=== PATIENT | male | born 1990 | race Hispanic/Latino ===

== ENCOUNTER 2020-02-25 11:00 | Emergency (ER) | payer OTHER, SELFPAY ==
[2020-02-25 11:09] VITALS: BP 154/72; PULSE 66; RESP 16; TEMP 36.4; O2SAT 100
--- NOTE | 2020-02-25 11:39 | ED.GENADULT ---
HPI - General Adult General Chief complaint: Head Injury Stated complaint: head injury Time Seen by Provider: 02/25/20 11:12 Source: patient and family Mode of arrival: ambulatory Limitations: no limitations History of Present Illness HPI narrative: Patient is a 29-year-old male who walked into a piece of metal today causing a laceration of the scalp notes mild discomfort to moderate discomfort of the scalp at the location of the laceration denies headache loss of consciousness syncope nausea vomiting or other complaints notes his tetanus is been in the last 8 years. Related Data Home Medications Medication Instructions Recorded Confirmed No Home Medications 02/25/20 02/25/20 Allergies Allergy/AdvReac Type Severity Reaction Status Date / Time No Known Allergies Allergy Verified 02/25/20 11:08 Review of Systems Review of Systems: Narrative: CONSTITUTIONAL: Denies fever, chills, or sweats. EYES: Denies visual changes, redness, or discharge. ENT: Denies rhinorrhea, epistaxis GASTROINTESTINAL: Denies abdominal pain, nausea, vomiting, or diarrhea. GENITOURINARY: Denies dysuria or hematuria. SKIN: Positive for scalp laceration MUSCULOSKELETAL: Denies neck pain NEUROLOGIC: Denies headache, numbness, dizziness, or weakness. [facility] Social History Social History (Updated 02/25/20 @ 11:41 by Anoop Bradshaw PA-C) Smoking status: Never smoker Gender identity (if verbalized by the patient): Male Exam Narrative: Exam Narrative: GENERAL: Well-appearing, well-nourished, and in no acute distress. HEAD: Normocephalic, 1.5 cm superficial EYES: PERRLA and EOMI. ENT: Nares clear, no rhinorrhea or epistaxis. Mucous membranes moist. EXTREMITIES: Normal range of motion. No edema. SKIN: Warm, dry, no rash. NEURO: No focal deficits. Alert and oriented x3. Cranial nerves II through XII grossly intact PSYCH: Normal mood and affect. Course Course Emergency Course: Patient's wound was repaired in the room in no distress afebrile nontoxic-appearing felt appropriate for outpatient reevaluation Vital Signs Vital signs: Vital Signs Temperature 97.5 F L 02/25/20 11:09 Pulse Rate 66 02/25/20 11:09 Respiratory Rate 16 02/25/20 11:09 Blood Pressure 154/72 H 02/25/20 11:09 Pulse Oximetry 100 02/25/20 11:09 Temperature 97.5 F L 02/25/20 11:09 Pulse Rate 66 02/25/20 11:09 Respiratory Rate 16 02/25/20 11:09 Blood Pressure 154/72 H 02/25/20 11:09 Pulse Oximetry 100 02/25/20 11:09 Procedures Laceration Laceration 1: Date: 02/25/20 Time: 11:43 Site: scalp Size (cm): 1.5 Description: linear Depth: simple, single layer Pre-repair: wound explored, irrigated and irrigated extensively ====== Skin Level ====== Skin layer closed with: kyleigh Number of sutures: 2 ====== Subcutaneous Layer ====== ====== Muscle Layer ====== ====== Tendon Layer ====== Medical Decision Making MDM Narrative Medical decision making narrative: Patient in the room in no distress aware of case findings treatment plan and diagnosis Vital Signs Vital Signs: Vital Signs Temperature 97.5 F L 02/25/20 11:09 Pulse Rate 66 02/25/20 11:09 Respiratory Rate 16 02/25/20 11:09 Blood Pressure 154/72 H 02/25/20 11:09 Pulse Oximetry 100 02/25/20 11:09 Temperature 97.5 F L 02/25/20 11:09 Pulse Rate 66 02/25/20 11:09 Respiratory Rate 16 02/25/20 11:09 Blood Pressure 154/72 H 02/25/20 11:09 Pulse Oximetry 100 02/25/20 11:09 Discharge Plan Discharge Clinical Impression: Closed head injury, Laceration of scalp Patient Disposition: Home, Self-Care Condition: Stable Instructions: Antibiotic Form, Laceration (DC) Additional Instructions: Follow up with your primary care doctor in 5-7 days for re-evaluation. Go to ER for worsening pain, vision changes, nausea/vomiting, fever/chills, weakness, chest pain, maddy
[2020-02-25] MEDS: IBUPROFEN 600 MG TABLET PO (11:49)
[2020-02-25] MEDS: TETANUS,DIPHTHERIA,AC PERTUSSIS ADULT (0.5 ML) BOOSTRIX IM (11:50)
== END 2020-02-25 12:04 | disposition home or self-care (01) ==
PROVIDERS: Emergency Provider Emergency Medicine
DX: S01.01XA Laceration without foreign body of scalp, initial encounter (principal); W22.8XXA Striking against or struck by other objects, initial encounter; Z23 Encounter for immunization
CPT/HCPCS: 12001; 90471; 90715; 99283; A9270

== ENCOUNTER 2020-05-22 20:25 | Emergency (ER) | payer SELFPAY ==
--- NOTE | ~2020-05-22 | XR_ITS ---
EXAMINATION: XR chest 2V DATE: 05/22/2020 20:58 INDICATION: Shortness of breath. TECHNIQUE: Frontal and lateral views of the chest were obtained. COMPARISON: None. FINDINGS: The chest demonstrates clear lungs without pneumonia, pleural effusion, or pneumothorax. Th e heart size is normal. IMPRESSION: 1. No acute cardiopulmonary disease. Reviewed, dictated and finalized at location A.
--- NOTE | 2020-05-22 20:36 | ECG_ITS ---
Measurements Intervals [place] Rate: 59 P: 37 [place]: 122 QRS: 14 QRSD: 98 T: 17 QT: 414 QTc: 412 Interpretive Statements SINUS BRADYCARDIA BASELINE ARTIFACT- I, III, AVL BORDERLINE ECG Electronically Signed On 05-22-2020 20:58:20 CDT by Mookie Sullivan D.O.
[2020-05-22 20:37] VITALS: BP 129/78; PULSE 64; RESP 16; TEMP 36.9; O2SAT 100
[2020-05-22 21:10] LABS: Basophils Percent Auto 0.5 % (0.2-1.2); Eosinophils Absolute Auto 0.1 K/mm3 (0-0.3); Hematocrit 42.2 % (42.0-52.0); Hemoglobin 14.4 g/dL (14.0-18.0); Immature Granulocyte Absolute 0.01 K/mm3 (0.00-0.031); Immature Granulocyte Percent A 0.2 % (0-0.5); Lymphocytes Absolute Auto 2.23 K/mm3 (0.9-3.2); Lymphocytes Percent Auto 50.2 % (18.3-44.2); Mean Corpuscular HGB Conc 34.1 g/dl (32-36); Mean Corpuscular Hemoglobin 30.9 pg (26-34); Mean Corpuscular Volume 90.6 fl (80-100); Mean Platelet Volume 9.1 fl (7.4-10.4); Monocytes Absolute Auto 0.4 K/mm3 (0.1-0.6); Monocytes Percent Auto 8.6 % (2.6-8.5); Neutrophils Absolute Auto 1.7 K/mm3 (1.3-6.7); Neutrophils Percent Auto 38.5 % (45.5-73.1); Platelet Count Result 309 k/mm3 (150-375); Red Blood Count 4.66 M/mm3 (4.6-6.20); Red Cell Distribution Width 12.9 % (11.5-14.5); White Blood Count 4.4 K/mm3 (4.5-10.0)
[2020-05-22 21:19] LABS: Blood Urea Nitrogen 17 mg/dL (9-20); Calcium 8.6 mg/dL (8.4-10.2); Carbon Dioxide 32 mmol/L (22-30); Chloride 99 mmol/L (98-107); Estimated CRCL calculation 109 ml/min; Estimated Glomerular Filt Rate > 60; Glucose 99 mg/dL (75-110); Potassium 3.9 mmol/L (3.4-5.0); Sodium 140 mmol/L (137-145)
--- NOTE | 2020-05-22 22:29 | ED.SOB ---
HPI - SOB/Dyspnea General Chief Complaint: Shortness of Breath/Dyspnea Stated Complaint: sob Time Seen by Provider: 05/22/20 22:11 Source: patient Mode of arrival: ambulatory Limitations: no limitations History of Present Illness HPI Narrative: This patient is a 29 year old male who present for evaluation of shortness of breath. He states he feels like something is in his chest and he feels like he needs to take a breath. He looked on google for diagnosis so he came to ER. He denies chest pain, cough, fever, abdominal pain, nausea, vomiting or dizziness. He denies URI symptoms. He denies signs of DVT. MD elicited complaint: shortness of breath Related Data Home Medications Medication Instructions Recorded Confirmed No Home Medications 02/25/20 02/25/20 Allergies Allergy/AdvReac Type Severity Reaction Status Date / Time No Known Allergies Allergy Verified 02/25/20 11:08 Review of Systems Review of Systems: All systems reviewed & are unremarkable except as noted in HPI and below Constitutional: Constitutional: Denies chills, Denies fever(s) and Denies weakness ENT: Denies dizziness, Denies nasal congestion and Denies sore throat Cardiovascular: Cardiovascular: Denies chest pain and Denies radiating jaw, neck or arm pain Respiratory: Respiratory: Denies chest congestion, Denies cough, Reports dyspnea and Denies wheezing Gastrointestinal: Gastrointestinal: Denies abdominal pain, Denies diarrhea, Denies nausea and Denies vomiting PMFSH Past Medical History Medical History (Updated 05/23/20 @ 00:00 by Amada Alonso) Patient denies medical problems Surgical History Surgical History (Updated 05/22/20 @ 22:52 by Rachel Smith MD) Hx of appendectomy Social History Social History (Updated 02/25/20 @ 11:41 by Anoop Bradshaw PA-C) Smoking status: Never smoker Gender identity (if verbalized by the patient): Male Exam Narrative: Exam Narrative: GENERAL: Well-appearing, well-nourished, and in no acute distress. HEAD: Normocephalic, atraumatic EYES: PERRLA and EOMI, conjunctiva clear without discharge EARS: TM's clear bilaterally without erythema or dullness NOSE: Nares clear, no rhinorrhea or epistaxis THROAT:Mucous membranes moist, Oropharynx normal without erythema, exudate, peritonsillar swelling or fluctuance NECK: Supple, without lymphadenopathy or mass RESPIRATORY: No respiratory distress, Airway patent, Respirations non-labored, Clear to auscultation without rales, rhonchi or wheeze HEART: Regular rate and rhythm. No murmur heard. Normal peripheral pulses. ABDOMEN: Soft, nontender, nondistended, normal active bowel sounds. No masses. No rebound or guarding, No organomegaly. EXTREMITIES: No edema, normal strength with full range of motion. SKIN: Warm, dry, normal color without rash NEURO: Alert and oriented x3. CN 2-12 grossly intact. No focal deficits. PSYCH: Normal mood and affect. Course Reevaluation(s) Reevaluation #1: Patient is no distress with oxyg patient isen saturation of 100% on room air. He is PERC negative. Date: 05/22/20 Time: 22:55 Vital Signs Vital signs: Vital Signs Temperature 98.4 F 05/22/20 20:37 Pulse Rate 64 05/22/20 20:37 Respiratory Rate 16 05/22/20 20:37 Blood Pressure 129/78 05/22/20 20:37 Pulse Oximetry 100 05/22/20 20:37 Temperature 97.6 F 05/22/20 23:18 Pulse Rate 56 L 05/22/20 23:18 Respiratory Rate 16 05/22/20 23:18 Blood Pressure 122/84 05/22/20 23:18 Pulse Oximetry 97 05/22/20 23:18 MDM - SOB/Dyspnea Lab Data Attestation: I reviewed the patient's lab results. Result diagrams: 05/22/20 20:40 05/22/20 20:40 Labs: Lab Results 05/22/20 05/22/20 Range/Units 20:40 20:40 WBC 4.4 L (4.5-10.0) K/mm3 RBC 4.66 (4.6-6.20) M/mm3 Hgb 14.4 (14.0-18.0) g/dL Hct 42.2 (42.0-52.0) % MCV 90.6 (80-100) fl MCH 30.9 (26-34) pg MCHC 34.1
[2020-05-22 23:18] VITALS: BP 122/84; PULSE 56; RESP 16; TEMP 36.4; O2SAT 97
== END 2020-05-22 23:20 | disposition home or self-care (01) ==
PROVIDERS: Emergency Provider General Practice
DX: R06.00 Dyspnea, unspecified (principal); R00.1 Bradycardia, unspecified
CPT/HCPCS: 36415; 71046; 80048; 85025; 93005; 99284